=== PATIENT | male | born 1985 | race Two or more races ===

== ENCOUNTER 2019-07-07 19:42 | Emergency (ER) | payer MEDICAID, OTHER ==
[~2019-07-07] VITALS: Ht 180.3 cm; Wt 108.9 kg
--- NOTE | 2019-07-07 19:48 | NUR ---
bb and leon from [facility] for bizarre behavior s/p meth use. PT IS CALM AND COOPERATIVE AT THIS TIME. DENIES ANY MEDICAL COMPLAINTS. HAS SOME ABRASIONS TO RIGHT SIDE OF ABDOMEN POSSIBLY RELATED TO BEING TASED BY [employer]. IV ACCESS SOFTWARE IMPLEMENTATION PROJECT MANAGER, RIGHT AC 20G. ON MONITOR AND READY FOR EVAL.
[2019-07-07] MEDS ORDERED: diphenhydrAMINE HCL 50 MG/ML VIAL ONE (20:08)
[2019-07-07] MEDS ORDERED: OLANZAPINE 10 MG VIAL IM ONE (20:08)
[2019-07-07] MEDS ORDERED: LORAZEPAM INJ 2 MG/ML VIAL ONE (20:09)
[2019-07-07] MEDS: diphenhydrAMINE HCL 50 MG/ML VIAL IM ONE (20:21)
[2019-07-07] MEDS: OLANZAPINE 10 MG VIAL IM ONE (20:21)
[2019-07-07] MEDS: LORAZEPAM INJ 2 MG/ML VIAL IM ONE (20:21)
[2019-07-07 20:25] LABS: BASOPHILS % (AUTO) 0.5 % (0.0-2.0); EOSINOPHILS % (AUTO) 0.2 % (0.0-6.0); HEMATOCRIT 36 % (39-51); HEMOGLOBIN 11.4 g/dL (13.5-17.5); LYMPHOCYTES # (AUTO) 0.8 /CMM (0.8-4.8); LYMPHOCYTES % (AUTO) 8.9 % (20.0-44.0); MEAN CORPUSCULAR HGB CONC 32 g/dl (31.0-36.0); MEAN CORPUSCULAR VOLUME 62 fL (80-96); MONOCYTES # (AUTO) 0.6 /CMM (0.1-1.30); MONOCYTES % (AUTO) 6.6 % (2.0-12.0); NEUTROPHILS # (AUTO) 7.2 /CMM (1.8-8.9); NEUTROPHILS % (AUTO) 83.8 % (43.0-81.0); PLATELET COUNT (AUTO) 253 /CMM (150-450); RED BLOOD CELL COUNT(AUTO) 5.82 MIL/uL (4.5-6.0); WHITE BLOOD COUNT (AUTO) 8.6 K/uL (4.3-11.0)
[2019-07-07 20:35] LABS: CALCIUM, SERUM 9.1 mg/dL (8.5-10.1); CARBON DIOXIDE 27 mmol/L (21-32); CHLORIDE 109 mmol/L (98-107); CREATININE 1.5 mg/dL (0.6-1.3); GLUCOSE 143 mg/dL (74-106); POTASSIUM 4.2 mmol/L (3.5-5.1); SODIUM SERUM 146 mmol/L (136-145); UREA NITROGEN, BLOOD 21 mg/dL (7-18)
[2019-07-07 20:40] LABS: ALANINE AMINOTRANSFERASE 37 U/L (12-78); ALBUMIN 4.1 g/dL (3.4-5.0); ALCOHOL, BLOOD < 3 mg/dL (0-0); ALKALINE PHOSPHATASE 61 U/L (46-116); ASPARTATE AMINOTRANSFERASE 31 U/L (15-37); BILIRUBIN,DIRECT 0.2 mg/dL (0.0-0.2); TOTAL PROTEIN, SERUM 7.3 g/dL (6.4-8.2)
[2019-07-07 20:47] LABS: ACETAMINOPHEN < 2 ug/ml (10-30)
[2019-07-07 20:48] LABS: SALICYLATE < 0.2 mg/dL (2.8-20.0)
[2019-07-07] MEDS ORDERED: LIDOCAINE 2% JEL UROJET 10 ML MM ONE (20:59)
[2019-07-07] MEDS: LIDOCAINE 2% JEL UROJET 10 ML MM ONE (21:09)
--- NOTE | 2019-07-07 21:10 | NUR ---
urine collected and sent to lab
[2019-07-07 21:19] LABS: APPEARANCE,URINE Clear (CLEAR); BILIRUBIN,URINE Negative (NEGATIVE); BLOOD, URINE Trace-intact Ery/uL (NEGATIVE); COLOR,URINE Yellow (YELLOW); KETONES,URINE Negative (NEGATIVE); LEUKOCYTE ESTERASE ,URINE Negative (NEGATIVE); NITRITE, URINE Negative (NEGATIVE); PROTEIN,URINE 100 mg/dl (NEGATIVE); UGLUCOSE Negative (NEGATIVE); UROBILINOGEN,URINE 0.2 EU/dL (0.2)
[2019-07-07] MEDS: IV NS 0.9% 1,000 ML BAG IV ONE (21:32)
[2019-07-07 21:35] LABS: BACTERIA,URINE Many /HPF (None Seen); RBC,URINE 0-2 /HPF (0-2); SQUAMOUS EPITHELIAL CELL,UR Few /HPF (None Seen); WBC,URINE 0-2 /HPF (0-3)
[2019-07-07 21:48] LABS: BAND % (MANUAL) 1 % (0.0-5.0); LYMPHOCYTES % (MANUAL) 9 % (16-48); MONOCYTES % (MANUAL) 5 % (0-11.0); NEUTROPHILS % (MANUAL) 85 (42-76)
--- NOTE | 2019-07-07 23:00 | NUR ---
PT ASLEEP, SNORING IN BED. VSS. CMS INTACT. WILL CONT TO MONITOR.
--- NOTE | 2019-07-08 04:02 | NUR ---
pt sleeping in [place]. no signs of distress noted. pt vital signs stable. will cont to monitor pt.
[2019-07-08 04:54] VITALS: BP 126/60
--- NOTE | 2019-07-08 08:30 | NUR ---
RODRICK REDMOND AT BEDSIDE FOR EVAL
--- NOTE | 2019-07-08 11:00 | NUR ---
LEONARD RN,PARTNERSHIP MANAGER AT BEDSIDE
--- NOTE | 2019-07-08 12:00 | NUR ---
PT UP FOR DISCHARGE, LEFT WITHOUT SIGNING. AWARE.
== END 2019-07-08 12:02 | disposition home or self-care (01) ==
LOC: ER 19:43
DX: T42.4X1A Poisoning by benzodiazepines, accidental (unintentional), initial encounter (principal); S30.811A Abrasion of abdominal wall, initial encounter; R46.2 Strange and inexplicable behavior; X58.XXXA Exposure to other specified factors, initial encounter; Y93.89 Activity, other specified; Y92.89 Other specified places as the place of occurrence of the external cause; Y99.8 Other external cause status
CPT/HCPCS: 36415; 51701; 80048; 80076; 80305; 80307; 80329; 81001; 85025; 87086; 96372 ×3; 99285; G0480; J1200; J2060; J3490 ×2; J7030; 81000-TC

== ENCOUNTER 2020-07-24 19:43 | Emergency (ER) | payer MEDICAID, OTHER ==
[~2020-07-24] VITALS: Ht 177.8 cm; Wt 90.7 kg
[2020-07-24] MEDS ORDERED: IV NS 0.9% 1,000 ML BAG IV ONE (20:00)
[2020-07-24] MEDS ORDERED: LORAZEPAM INJ 2 MG/ML VIAL IV ONE ×2 (20:00→21:00)
[2020-07-24] MEDS ORDERED: LORAZEPAM INJ 2 MG/ML VIAL ONE ×2 (20:15→20:46)
--- NOTE | 2020-07-24 20:26 | NUR ---
BIB EMS FROM HOME C/O ANXIETY. TOOK ATIVAN 0.5MG X2 EARLIER & ATIVAN 0.5MG @ 1920 PRIOR TO EMS ARRIVAL. ADMITS TO METH USE YESTERDAY. PT AAOX4, VSS. RR EVEN & UNLABORED. DENIES CP, SOB, DIZZINESS, N/V AT THIS TIME. PT SEEN & EVAL'D BY DR. MONROY. MEDICATED ORDERED, PT JABIER WELL. WILL CONT TO MONITOR.
[2020-07-24 20:28] LABS: BASOPHILS # (AUTO) 0.1 /CMM (0.0-0.2); BASOPHILS % (AUTO) 0.6 % (0.0-2.0); EOSINOPHILS % (AUTO) 0.4 % (0.0-6.0); HEMATOCRIT 41 % (39-51); HEMOGLOBIN 12.9 g/dL (13.5-17.5); LYMPHOCYTES # (AUTO) 2.1 /CMM (0.8-4.8); LYMPHOCYTES % (AUTO) 21.8 % (20.0-44.0); MEAN CORPUSCULAR HGB CONC 32 g/dl (31.0-36.0); MEAN CORPUSCULAR VOLUME 60 fL (80-96); MONOCYTES # (AUTO) 0.8 /CMM (0.1-1.30); MONOCYTES % (AUTO) 8.3 % (2.0-12.0); NEUTROPHILS # (AUTO) 6.7 /CMM (1.8-8.9); NEUTROPHILS % (AUTO) 68.9 % (43.0-81.0); PLATELET COUNT (AUTO) 332 /CMM (150-450); RED BLOOD CELL COUNT(AUTO) 6.79 MIL/uL (4.5-6.0); WHITE BLOOD COUNT (AUTO) 9.8 K/uL (4.3-11.0)
[2020-07-24 20:35] LABS: CALCIUM, SERUM 9.6 mg/dL (8.5-10.1); CARBON DIOXIDE 25 mmol/L (21-32); CHLORIDE 100 mmol/L (98-107); CREATININE 1.3 mg/dL (0.6-1.3); GLUCOSE 164 mg/dL (74-106); POTASSIUM 3.4 mmol/L (3.5-5.1); SODIUM SERUM 139 mmol/L (136-145); UREA NITROGEN, BLOOD 26 mg/dL (7-18)
--- NOTE | 2020-07-24 20:52 | NUR ---
GIVEN 1MG OF ATIVAN IVP PER PT 'S REQUEST FOR NOW & WILL LET ME KNOW IF HE NEEDS ANOTHER 1MG OF ATIVAN, DR. MONROY AWARE & OK'D IT.
[2020-07-24 21:17] LABS: LYMPHOCYTES % (MANUAL) 25 % (16-48); MONOCYTES % (MANUAL) 11 % (0-11.0); NEUTROPHILS % (MANUAL) 64 (42-76)
--- NOTE | 2020-07-24 21:52 | NUR ---
Patient discharged to home in stable condition. Written and verbal after care instructions given. Patient verbalizes understanding of instruction. IV removed. Catheter intact and site benign. Pressure and 4x4 applied to site. No bleeding noted.
[2020-07-24 21:54] VITALS: BP 126/85
== END 2020-07-24 21:55 | disposition home or self-care (01) ==
LOC: ER 19:45
DX: F41.9 Anxiety disorder, unspecified (principal); E86.0 Dehydration; R00.0 Tachycardia, unspecified
CPT/HCPCS: 36415; 71045; 80048; 84484; 85025; 93005 ×3; 96361; 96374; 99285; J2060; J7030